=== PATIENT | male | born 1980 | race Caucasian/White ===

== ENCOUNTER 2023-01-22 14:46 | Inpatient (IN) | payer SELFPAY ==
[~2023-01-22] VITALS: Ht 177.8 cm; Wt 79.4 kg
[2023-01-22 14:46] VITALS: BP_SYST 99
[2023-01-22] MEDS ORDERED: KETAMINE HCL IN 0.9 % NACL 50 MG/5 ML SYRINGE IVP ONE (15:15)
[2023-01-22 16:27] LABS: BILIRUBIN,URINE NEGATIVE (NEGATIVE); BLOOD, URINE 3+ (NEGATIVE); CLARITY/URINE CLEAR (CLEAR); COLOR,URINE YELLOW (YELLOW); GLUCOSE,URINE NEGATIVE (NEGATIVE); KETONES,URINE 1+ (NEGATIVE); LEUKOCYTE ESTERASE ,URINE NEGATIVE (NEGATIVE); NITRITE, URINE NEGATIVE (NEGATIVE); PH,URINE 5.5 (5.0-8.0); PROTEIN URINE 2+ (NEGATIVE); UROBILINOGEN,URINE 0.2 (0.2-1.0)
[2023-01-22 16:38] LABS: BASOPHILS % (AUTO) 0.3 % (0.0-2.0); HEMATOCRIT 39.3 % (36-54); LYMPHOCYTES # (AUTO) 0.6 K/uL (1.0-5.5); LYMPHOCYTES % (AUTO) 5.6 % (20.5-51.5); MEAN CORPUSCULAR HEMOGLOBIN 28 pg (27-31); MEAN CORPUSCULAR HGB CONC 33 % (32-36); MEAN CORPUSCULAR VOLUME 84 fL (79.0-98.0); MONOCYTES # (AUTO) 0.6 K/uL (0.0-1.0); MONOCYTES % (AUTO) 6.1 % (1.7-9.3); NEUTROPHILS # (AUTO) 8.9 K/uL (1.8-7.7); PLATELET COUNT (AUTO) 232 K/uL (130-430); RED BLOOD CELL COUNT(AUTO) 4.67 MIL/uL (4.2-6.2); RED CELL DISTRIBUTION WIDTH 14.9 % (9.0-15.0); WHITE BLOOD COUNT (AUTO) 10.1 K/uL (4.8-10.8)
[2023-01-22 16:47] LABS: PROTHROMBIN TIME 10.4 SECS (9.5-12.5)
[2023-01-22 16:48] LABS: ANION GAP 17 (5-15); CALCIUM 8.8 mg/dL (8.4-11.0); CHLORIDE 100 mmol/L (98-107); CREATININE 1.34 mg/dL (0.55-1.30); GFR AFRICAN AMERICAN 76 mL/min (>90); GLUCOSE 86 mg/dL (70-99); UREA NITROGEN, BLOOD 32 mg/dL (8-21)
[2023-01-22 16:49] LABS: BARBITURATE, URINE NEGATIVE (NEG <=200); BENZODIAZEPINE, URINE NEGATIVE (NEG <=150); CANNABINOID, URINE NEGATIVE (NEG <=50); COCAINE, URINE NEGATIVE (NEG <=150); METHAMPHETAMINES SCREEN,URINE POSITIVE (NEG <=500); OPIATE, URINE NEGATIVE (NEG <=100); PHENCYCLIDINE SCREEN,URINE NEGATIVE (NEG <=25); URINE AMPHETAMINE POSITIVE (NEG <=500); URINE METHADONE NEGATIVE (NEG <=200); URINE OXYCODONE SCREEN NEGATIVE (NEG <=100); URINE PROPOXYPHENE SCREEN NEGATIVE (NEG <=300)
[2023-01-22 16:50] LABS: UR TRICYCLIC ANTIDEPRESSANTS NEGATIVE (NEG <=300)
[2023-01-22 16:56] LABS: BACTERIA,URINE None Seen /HPF (None Seen); RBC,URINE 0-3 /HPF (0-3); WBC,URINE 0-3 /HPF (0-3)
[2023-01-22 16:57] LABS: MUCUS,URINE None Seen /LPF (None Seen)
[2023-01-22 17:02] LABS: ALANINE AMINOTRANSFERASE 48 U/L (12-78); ALBUMIN 4.2 g/dL (3.4-4.8); ASPARTATE AMINOTRANSFERASE 136 U/L (10-37); C-REACTIVE PROTEIN QUANT 3.8 mg/dL (0-0.5); TOTAL BILIRUBIN 1.4 mg/dL (0.0-1.0)
[2023-01-22 17:07] LABS: ACETAMINOPHEN < 1 ug/mL (1-30); ALCOHOL, BLOOD < 3 mg/dL (<10)
[2023-01-22 17:30] LABS: ACETONE, SERUM NEGATIVE (NEGATIVE)
[2023-01-22] MEDS ORDERED: NACL 0.9% 3,000 ML IV ONE (17:45)
[2023-01-22] MEDS ORDERED: SODIUM BICARBONATE 8.4% JECT 50 MEQ/50 ML SYRINGE IVP ONE (17:45)
[2023-01-22 18:08] LABS: CKMB RELATIVE INDEX 0.8 (0.0-2.9); CREATINE KINASE MB 73.8 ng/mL (0-3.6)
[2023-01-22] MEDS ORDERED: NACL 0.9% 1,000 ML IV ONE (18:15)
[2023-01-22 20:00] VITALS: BP_SYST 109
[2023-01-22] MEDS ORDERED: HALOPERIDOL LACTATE 5 MG/ML VIAL IM ONE (21:45)
== END 2023-01-22 21:45 | disposition left against medical advice (07) | DRG 558 ==
LOC: SED 14:46 → SMU 18:03
PROVIDERS: ADMIT Preventive Medicine Preventive Medicine/Occupational Environmental Medicine; ATTEND Preventive Medicine Preventive Medicine/Occupational Environmental Medicine
DX: M62.82 Rhabdomyolysis (principal); Z53.29 Procedure and treatment not carried out because of patient's decision for other reasons
CPT/HCPCS: 36415; 70450-TC; 71045; 72125-TC; 76376; 80053; 80307; 81000; 82009; 82140; 82550; 82553; 83605; 83880; 84484; 85025; 85610-TC; 85730-TC; 86140; 87040; 93005; 96361; 96374; 96375; 99285; G0480; G0481; G0482; J7030